=== PATIENT | male | born 1990 | race Caucasian/White ===

== ENCOUNTER 2019-09-06 13:14 | Inpatient (IN) | payer OTHER ==
--- NOTE | 2019-09-06 16:38 | HP ---
CIWA Score Nausea/Vomitin Muscle Tremors: 3 Anxiety: 3 Agitation: 2 Paroxysmal Sweats: 1-Minimal Palms Moist Orientation: 0-Oriented Tacttile Disturbances: 0-None Auditory Disturbances: 0-None Visual Disturbances: 0-None Headache: 2-Mild CIWA-Ar Total Score: 13 - Admission Criteria OASAS Guidelines: Admission for Medically Managed Detox: Requires at least one of the followin. CIWA greater than 12 2. Seizures within the past 24 hours 3. Delirium tremens within the past 24 hours 4. Hallucinations within the past 24 hours 5. Acute intervention needed for co occurring medical disorder 6. Acute intervention needed for co occurring psychiatric disorder 7. Severe withdrawal that cannot be handled at a lower level of care (continued vomiting, continued diarrhea, abnormal vital signs) requiring intravenous medication and/or fluids 8. Patient presents the following: CIWA greater than 12 Admission Criteria Met: Admission criteria met Admission [facility] Chief Complaint: alcohol detox and metamphetamine use Allergies/Adverse Reactions: Allergies Allergy/AdvReac Type Severity Reaction Status Date / Time No Known Allergies Allergy Verified 09/06/19 17:05 History of Present Illness: 29 yo with h/o metamphetamine use and alcohol use. Says he has bipolar d/o- on resperidal- does not take consistently. Does not have provider. Pt states last alcohol use was yesterday. Pt was taken to [facility] ER, evaluated for overdose and given Ativan and fluids and then sent here for detox. Says his parents called the ambulance because he was screaming and yelling at home. Lives in the [place]. Does not work. Gets high all day. alcohol- several beers a day crystal meth- 1/2 gram/day, injects into arm- started 6 months ago BECKI-0 Utox- pos for Met. ISTOP- negative for controlled substances. - Ebola screening Have you traveled outside of the country in the last 21 days: No Have you had contact with anyone from an Ebola affected area: No Have you been sick,other than usual withdrawal symptoms: No Do you have a fever: No - Review of Systems Constitutional: No Symptoms Reported EENT: reports: No Symptoms Reported Respiratory: reports: No Symptoms reported Cardiac: reports: No Symptoms Reported GI: reports: No Symptoms Reported : reports: No Symptoms Reported Musculoskeletal: reports: No Symptoms Reported Integumentary: reports: Other (states he born with a large rash on forearm) Neuro: reports: No Symptoms reported Endocrine: reports: No Symptoms Reported, Unexplained Weight Loss Psychiatric: reports: Agitated, Anxious, other (denies self harming thoughts) Other Systems: Reviewed and Negative Patient History - Patient Medical History Hx Bipolar Disorder: Yes - Patient Surgical History Past Surgical History: No - Smoking Cessation Smoking history: Never smoked Have you smoked in the past 12 months: No - Substance & Tx. History Hx Alcohol Use: Yes Hx Substance Use: Yes Hx Substance Use Treatment: No - Substances abused Crystal meth Substance route: Injection Frequency: Daily Amount used: 1/2 gram day Age of first use: 29 Date of last use: 09/05/19 Alcohol Other (specify): beer Substance route: Oral Frequency: Daily Amount used: several beers Date of last use: 09/05/19 Admission Physical Exam S - Physical General Appearance: Yes: Disheveled, Irritable, Anxious HEENTM: Yes: Within Normal Limits, Hearing grossly Normal, BENJAMIN, Pharynx Normal , Other (dry chapped lips) Respiratory: Yes: Within Normal Limits, Lungs Clear Neck: Yes: Within Normal Limits, No masses,lesions,Nodules Cardiology: Yes: Within Normal Limits, Regular Rhythm, Regular Rate Abdominal: Yes: Within Normal Limits, Normal Bowel Sounds, Non Tender Back: Yes: Within Normal Limits, Other (2 quarter sized open area on back- pt state oscar) Musculoskeletal: Yes: Within Normal Limits, Gait Steady Extremities: Yes: Within Normal Limits, Other (L upper extr: keratotic entending in a linear fashion, about 1-2 inches wide, from mid-forearm to shoulder) Neurological: Yes: Within Normal Limits, Fully Oriented, Alert, Motor Strength 5 /5, Normal Mood/Affect Integumentary: Yes: Track Jhaveri, Other (L upper extr: keratotic entending in a linear fashion, about 1-2 inches wide, from mid-forearm to shoulder and on upper shoulder) Lymphatic: Yes: Within Normal Limits - Diagnostic (1) Alcohol use disorder Current Visit: Yes Status: Acute (2) Methamphetamine use disorder, mild Current Visit: Yes Status: Acute (3) Bipolar 1 disorder Current Visit: Yes Status: Acute (4) Keratosis Current Visit: Yes Status: Acute Breathalyzer - Breathalyzer Breathalyzer: 0 Urine Drug Screen - Test Device Lot number: [id number] Expiration date: 06/13/21 - Control Is test valid?: Yes - Results Drug screen NEGATIVE: No Urine drug screen results: MET-Methamphetamine Inpatient Rehab Admission - Rehab Decision to Admit Inpatient rehab admission?: No
[2019-09-06] MEDS ORDERED: ONDANSETRON *ODT* 4 MG TABLET SL PRN (17:05)
[2019-09-06] MEDS ORDERED: BISMUTH SUBSALICYLATE 524 MG/30 ML UD PO PRN (17:05)
[2019-09-06] MEDS ORDERED: MAGNESIUM CITRATE 300 ML BOTTLE PO PRN (17:05)
[2019-09-06] MEDS ORDERED: MAGNESIUM HYDROX 2400MG/30ML ORAL SUSPENSION 30 ML CUP PO PRN (17:05)
[2019-09-06] MEDS ORDERED: hydrOXYzine PAMOATE 25 MG CAPSULE (FP) PO PRN (17:05)
[2019-09-06] MEDS ORDERED: METHOCARBAMOL 500 MG TABLET PO PRN (17:05)
[2019-09-06] MEDS ORDERED: MENTHOL/PHENOL 1 EACH UD MM PRN (17:05)
[2019-09-06] MEDS ORDERED: ACETAMINOPHEN 325 MG TABLET (FP) PO PRN ×2 (17:05)
[2019-09-06] MEDS ORDERED: MAG HYDROX/AL HYDROX/SIMETH 30 ML UNIT-DOSE CUP PO PRN (17:05)
[2019-09-06] MEDS ORDERED: LORazepam 1 MG TABLET PO PRN (17:05)
[2019-09-06] MEDS ORDERED: IBUPROFEN 400 MG TABLET (FP) PO PRN (17:05)
[2019-09-06 17:37] VITALS: BMI 30.1
[2019-09-06] MEDS ORDERED: LORazepam 2 MG TABLET PO ONE (18:30)
[2019-09-06] MEDS: THIAMINE HCL 100 MG TABLET (FP) PO SCH (22:04)
[2019-09-06] MEDS: MELATONIN 5 MG TABLETS PO PRN (22:04)
[2019-09-06] MEDS: LORazepam 2 MG TABLET PO SCH (22:04)
[2019-09-07] MEDS: LORazepam 2 MG TABLET PO SCH ×4 (06:31→22:12)
--- NOTE | 2019-09-07 08:20 | CONSULT ---
[facility] Psychiatric Consult - Data Date of interview: 09/07/19 Admission source: [facility] Identifying data: Mr Daniel is a 29 years old single male, unemployed with no source of income, living with his family seeking detox treatment for alcohol and methamphetamine Substance Abuse History: Reports history of alcohol and crystal meth use. Refer to addiction counselor's summary for further information Medical History: Unremarkable Psychiatric History: Reports that his first psychiatric contact occured a year ago when he was admitted to [facility], diagnosed with Bipolar Disorder and prescribed Risperdal 2mg/day. reports that he was discharged after 2 weeks stay, referred to outpatient for follow up. Told sports writer that he did not follow discharge instruction and has been off medication since. Denies previous suicidal attempt. At present, denies experiencing psychotic, manic or depressive symptoms, s/H ideations. However, reports sleeping poorly Physical/Sexual Abuse/Trauma History: Denies history of abuse as a child or DV relationship as an adult Mental Status Exam - Mental Status Exam Alert and Oriented to: Time, Place, Person Cognitive Function: Fair Patient Appearance: Disheveled Mood: Hopeful, Euthymic Speech Pattern: Clear Voice Loudness: Normal Thought Process: Intact, Goal Oriented Thought Disorder: Paranoid Ideation Suicidal Ideation: Denies Homicidal Ideation: Denies Insight/Judgement: Poor Sleep: Poorly Appetite: Good Muscle strength/Tone: Normal Gait/Station: Normal Psychiatric Findings - Problem List (Mathews 1, 2,3) (1) Mood disorder Current Visit: Yes Status: Chronic (2) Bipolar disorder Current Visit: Yes Status: Ruled-out (3) Substance induced mood disorder Current Visit: Yes Status: Ruled-out (4) Uncomplicated alcohol dependence Current Visit: Yes Status: Acute (5) Methamphetamine dependence Current Visit: Yes Status: Acute - Initial Treatment Plan Initial Treatment Plan: 1) Start Risperdal 1 mg po BID. 2) Continue inpatient detoxification
[2019-09-07 10:05] LABS: HEMATOCRIT 40.6 % (35.4-49); HEMOGLOBIN 13.7 GM/dL (11.7-16.9); MCH 29.2 pg (25.7-33.7); MCHC 33.8 g/dl (32.0-35.9); MEAN CELL VOLUME 86.4 fl (80-96); MEAN PLT VOLUME 8.3 fl (7.5-11.1); PLATELET COUNT 242 K/MM3 (134-434); WHITE BLOOD COUNT 6.3 K/mm3 (4.0-10.0)
--- NOTE | 2019-09-07 10:08 | EKG ---
Test Reason : Blood Pressure : / mmHG Vent. Rate : 076 BPM Atrial Rate : 076 BPM P-R Int : 138 ms QRS Dur : 088 ms QT Int : 372 ms P-R-T Axes : 034 054 029 degrees QTc Int : 418 ms SINUS RHYTHM WITH MARKED SINUS ARRHYTHMIA OTHERWISE NORMAL ECG NO PREVIOUS ECGS AVAILABLE Confirmed by Louie Chen ([id number]) on 09/07/2019 10:08:14 AM Referred By: Confirmed By:Louie Chen
[2019-09-07 10:19] LABS: ALBUMIN 3.2 g/dl (3.4-5.0); BILIRUBIN,TOTAL 0.2 mg/dL (0.2-1); BLOOD UREA NITROGEN 8.7 mg/dL (7-18); CALCIUM 7.9 mg/dL (8.5-10.1); CREATININE 0.8 mg/dL (0.55-1.3); TOT PROT 7.1 g/dl (6.4-8.2)
[2019-09-07] MEDS: risperiDONE 1 MG TABLET PO SCH ×2 (10:27→22:12)
[2019-09-07] MEDS: PRENATAL VITAMINS W/ FOLIC ACID TABLET (FP) PO SCH (10:27)
--- NOTE | 2019-09-07 11:07 | PN ---
S CIWA - CIWA Score Nausea/Vomitin-Mild Nausea/No Vomiting Muscle Tremors: 4-Moderate,w/Arms Extend Anxiety: 3 Agitation: 1-Slight > Activity Paroxysmal Sweats: 2 Orientation: 0-Oriented Tacttile Disturbances: 0-None Auditory Disturbances: 0-None Visual Disturbances: 1-Very Mild Sensitivity Headache: 0-None Present CIWA-Ar Total Score: 12 S Progress Note (SOAP) Subjective: 29 years old male admitted on 09/06/19 for alcohol withdrawal sx management treating with ativan detox regiment feeling ok today ate breakfast tolerated food and fluid well resting in bed limited conversation with staff Objective: 09/07/19 11:06 Vital Signs Temperature 98.7 F 09/07/19 09:02 Pulse Rate 95 H 09/07/19 09:02 Respiratory Rate 18 09/07/19 09:02 Blood Pressure 122/79 09/07/19 09:02 O2 Sat by Pulse Oximetry (%) Laboratory Last Values WBC 6.3 K/mm3 (4.0-10.0) 09/07/19 07:30 RBC 4.70 M/mm3 (4.00-5.60) 09/07/19 07:30 Hgb 13.7 GM/dL (11.7-16.9) 09/07/19 07:30 Hct 40.6 % (35.4-49) 09/07/19 07:30 MCV 86.4 fl (80-96) 09/07/19 07:30 MCH 29.2 pg (25.7-33.7) 09/07/19 07:30 MCHC 33.8 g/dl (32.0-35.9) 09/07/19 07:30 RDW 13.0 % (11.9-15.9) 09/07/19 07:30 Plt Count 242 K/MM3 (134-434) 09/07/19 07:30 MPV 8.3 fl (7.5-11.1) 09/07/19 07:30 Sodium 135 mmol/L (136-145) L 09/07/19 07:30 Potassium 4.0 mmol/L (3.5-5.1) 09/07/19 07:30 Chloride 106 mmol/L (98-107) 09/07/19 07:30 Carbon Dioxide 25 mmol/L (21-32) 09/07/19 07:30 Anion Gap 4 MMOL/L (8-16) L 09/07/19 07:30 BUN 8.7 mg/dL (7-18) 09/07/19 07:30 Creatinine 0.8 mg/dL (0.55-1.3) 09/07/19 07:30 Est GFR (CKD-EPI)AfAm 139.91 09/07/19 07:30 Est GFR (CKD-EPI)NonAf 120.72 09/07/19 07:30 Random Glucose 126 mg/dL (74-106) H 09/07/19 07:30 Calcium 7.9 mg/dL (8.5-10.1) L 09/07/19 07:30 Total Bilirubin 0.2 mg/dL (0.2-1) 09/07/19 07:30 AST 23 U/L (15-37) 09/07/19 07:30 ALT 34 U/L (13-61) 09/07/19 07:30 Alkaline Phosphatase 91 U/L (45-117) 09/07/19 07:30 Total Protein 7.1 g/dl (6.4-8.2) 09/07/19 07:30 Albumin 3.2 g/dl (3.4-5.0) L 09/07/19 07:30 lab noted low Ca++ supplement oscal Assessment: 09/07/19 11:07 alcohol withdrawal Plan: ativan regiment
[2019-09-07] MEDS: CALCIUM 250MG/VIT-D 125 UNITS 1 COMBO TABLET PO SCH ×2 (12:09→22:12)
[2019-09-07] MEDS: THIAMINE HCL 100 MG TABLET (FP) PO SCH (22:15)
[2019-09-08] MEDS: LORazepam 1 MG TABLET PO SCH ×4 (06:17→22:00)
[2019-09-08] MEDS: CALCIUM 250MG/VIT-D 125 UNITS 1 COMBO TABLET PO SCH ×2 (10:44→22:00)
[2019-09-08] MEDS: PRENATAL VITAMINS W/ FOLIC ACID TABLET (FP) PO SCH (10:44)
[2019-09-08] MEDS: risperiDONE 1 MG TABLET PO SCH ×2 (10:44→22:00)
--- NOTE | 2019-09-08 10:57 | PN ---
S CIWA - CIWA Score Nausea/Vomitin-No Nausea/No Vomiting Muscle Tremors: 3 Anxiety: 2 Agitation: 0-Normal Activity Paroxysmal Sweats: 1-Minimal Palms Moist Orientation: 0-Oriented Tacttile Disturbances: 0-None Auditory Disturbances: 0-None Visual Disturbances: 1-Very Mild Sensitivity Headache: 1-Very Mild CIWA-Ar Total Score: 8 S Progress Note (SOAP) Subjective: 29 years old male admitted on 09/06/19 for alcohol withdrawal sx management treating with ativan detox regiment feeling tired refuses vital signs compliance with ativan regiment encourage to attend behavior and psychosocial therapies groups and meetings while in detox patient prefers to go to [facility] as next level for chemical dependent recovery Objective: 09/08/19 11:05 Vital Signs Temperature 97 F L 09/08/19 10:44 Pulse Rate 107 H 09/08/19 10:44 Respiratory Rate 20 09/08/19 10:44 Blood Pressure 114/62 09/08/19 10:44 O2 Sat by Pulse Oximetry (%) Laboratory Last Values WBC 6.3 K/mm3 (4.0-10.0) 09/07/19 07:30 RBC 4.70 M/mm3 (4.00-5.60) 09/07/19 07:30 Hgb 13.7 GM/dL (11.7-16.9) 09/07/19 07:30 Hct 40.6 % (35.4-49) 09/07/19 07:30 MCV 86.4 fl (80-96) 09/07/19 07:30 MCH 29.2 pg (25.7-33.7) 09/07/19 07:30 MCHC 33.8 g/dl (32.0-35.9) 09/07/19 07:30 RDW 13.0 % (11.9-15.9) 09/07/19 07:30 Plt Count 242 K/MM3 (134-434) 09/07/19 07:30 MPV 8.3 fl (7.5-11.1) 09/07/19 07:30 Sodium 135 mmol/L (136-145) L 09/07/19 07:30 Potassium 4.0 mmol/L (3.5-5.1) 09/07/19 07:30 Chloride 106 mmol/L (98-107) 09/07/19 07:30 Carbon Dioxide 25 mmol/L (21-32) 09/07/19 07:30 Anion Gap 4 MMOL/L (8-16) L 09/07/19 07:30 BUN 8.7 mg/dL (7-18) 09/07/19 07:30 Creatinine 0.8 mg/dL (0.55-1.3) 09/07/19 07:30 Est GFR (CKD-EPI)AfAm 139.91 09/07/19 07:30 Est GFR (CKD-EPI)NonAf 120.72 09/07/19 07:30 Random Glucose 126 mg/dL (74-106) H 09/07/19 07:30 Calcium 7.9 mg/dL (8.5-10.1) L 09/07/19 07:30 Total Bilirubin 0.2 mg/dL (0.2-1) 09/07/19 07:30 AST 23 U/L (15-37) 09/07/19 07:30 ALT 34 U/L (13-61) 09/07/19 07:30 Alkaline Phosphatase 91 U/L (45-117) 09/07/19 07:30 Total Protein 7.1 g/dl (6.4-8.2) 09/07/19 07:30 Albumin 3.2 g/dl (3.4-5.0) L 09/07/19 07:30 RPR Titer Nonreactive (NONREACTIVE) 09/07/19 07:30 lab noted Assessment: 09/08/19 11:06 alcohol withdrawal Plan: ativan regiment
[2019-09-08] MEDS: SODIUM CHLORIDE NASAL SPRAY 44 ML BOTTLE NS SCH ×2 (13:44→22:01)
[2019-09-08] MEDS: THIAMINE HCL 100 MG TABLET (FP) PO SCH (22:00)
[2019-09-08] MEDS: MELATONIN 5 MG TABLETS PO PRN (22:01)
[2019-09-09] MEDS ORDERED: LORazepam 0.5 MG TABLET PO PRN
[2019-09-09] MEDS: LORazepam 0.5 MG TABLET PO SCH ×4 (06:24→22:06)
[2019-09-09] MEDS: SODIUM CHLORIDE NASAL SPRAY 44 ML BOTTLE NS SCH ×3 (07:02→22:08)
[2019-09-09] MEDS: PRENATAL VITAMINS W/ FOLIC ACID TABLET (FP) PO SCH (10:34)
[2019-09-09] MEDS: CALCIUM 250MG/VIT-D 125 UNITS 1 COMBO TABLET PO SCH ×2 (10:34→22:06)
[2019-09-09] MEDS: risperiDONE 1 MG TABLET PO SCH ×2 (10:35→22:06)
--- NOTE | 2019-09-09 15:12 | PN ---
[facility] CIWA - CIWA Score Nausea/Vomitin-No Nausea/No Vomiting Muscle Tremors: 1-None Visible, but [place] Anxiety: 1-Mildly Anxious Agitation: 0-Normal Activity Paroxysmal Sweats: 1-Minimal Palms Moist Orientation: 0-Oriented Tacttile Disturbances: 1-Very Mild Itch/Numbness Auditory Disturbances: 0-None Visual Disturbances: 1-Very Mild Sensitivity Headache: 0-None Present CIWA-Ar Total Score: 5 [facility] Progress Note (SOAP) Subjective: 29 years old male admitted on 09/06/19 for alcohol withdrawal sx management treating with ativan detox regiment feeling better today less tremor mild anxiety Objective: 09/09/19 15:11 Vital Signs Temperature 97.4 F L 09/09/19 12:52 Pulse Rate 107 H 09/09/19 12:52 Respiratory Rate 18 09/09/19 12:52 Blood Pressure 139/85 09/09/19 12:52 O2 Sat by Pulse Oximetry (%) Laboratory Last Values WBC 6.3 K/mm3 (4.0-10.0) 09/07/19 07:30 RBC 4.70 M/mm3 (4.00-5.60) 09/07/19 07:30 Hgb 13.7 GM/dL (11.7-16.9) 09/07/19 07:30 Hct 40.6 % (35.4-49) 09/07/19 07:30 MCV 86.4 fl (80-96) 09/07/19 07:30 MCH 29.2 pg (25.7-33.7) 09/07/19 07:30 MCHC 33.8 g/dl (32.0-35.9) 09/07/19 07:30 RDW 13.0 % (11.9-15.9) 09/07/19 07:30 Plt Count 242 K/MM3 (134-434) 09/07/19 07:30 MPV 8.3 fl (7.5-11.1) 09/07/19 07:30 Sodium 135 mmol/L (136-145) L 09/07/19 07:30 Potassium 4.0 mmol/L (3.5-5.1) 09/07/19 07:30 Chloride 106 mmol/L (98-107) 09/07/19 07:30 Carbon Dioxide 25 mmol/L (21-32) 09/07/19 07:30 Anion Gap 4 MMOL/L (8-16) L 09/07/19 07:30 BUN 8.7 mg/dL (7-18) 09/07/19 07:30 Creatinine 0.8 mg/dL (0.55-1.3) 09/07/19 07:30 Est GFR (CKD-EPI)AfAm 139.91 09/07/19 07:30 Est GFR (CKD-EPI)NonAf 120.72 09/07/19 07:30 Random Glucose 126 mg/dL (74-106) H 09/07/19 07:30 Calcium 7.9 mg/dL (8.5-10.1) L 09/07/19 07:30 Total Bilirubin 0.2 mg/dL (0.2-1) 09/07/19 07:30 AST 23 U/L (15-37) 09/07/19 07:30 ALT 34 U/L (13-61) 09/07/19 07:30 Alkaline Phosphatase 91 U/L (45-117) 09/07/19 07:30 Total Protein 7.1 g/dl (6.4-8.2) 09/07/19 07:30 Albumin 3.2 g/dl (3.4-5.0) L 09/07/19 07:30 RPR Titer Nonreactive (NONREACTIVE) 09/07/19 07:30 lab noted 09/09/19 15:11 continue calcium supplement Assessment: 09/09/19 15:12 alcohol withdrawal Plan: ativan regiment
[2019-09-09] MEDS: THIAMINE HCL 100 MG TABLET (FP) PO SCH (22:06)
[2019-09-09] MEDS: MELATONIN 5 MG TABLETS PO PRN (22:07)
[2019-09-10] MEDS ORDERED: LORazepam 0.5 MG TABLET PO ONE (05:00)
[2019-09-10] MEDS: SODIUM CHLORIDE NASAL SPRAY 44 ML BOTTLE NS SCH (07:28)
[2019-09-10 09:56] VITALS: BP 131/79; PULSE 108; TEMP 97.7
[2019-09-10] MEDS: CALCIUM 250MG/VIT-D 125 UNITS 1 COMBO TABLET PO SCH (11:43)
[2019-09-10] MEDS: risperiDONE 1 MG TABLET PO SCH (11:44)
[2019-09-10] MEDS: PRENATAL VITAMINS W/ FOLIC ACID TABLET (FP) PO SCH (11:44)
--- NOTE | 2019-09-10 14:11 | DS ---
[facility] Detox Discharge Summary Admission Date: 09/06/19 Discharge Date: 09/10/19 - History Present History: Alcohol Dependence Additional Comments: 29 years old male admitted on 09/06/19 for alcohol withdrawal sx management treated with ativan detox regiment Mr Daniel has completed ativan regiment and tolerated well seen by psychiatrist resume risparidal alert oriented x 3 respiratory clear lungs bilaterally on auscultation abdomen soft round obese no rebound tenderness skin warm and dry Pertinent Past History: time for discharge 32 minutes - Physical Exam Results Vital Signs: Vital Signs Temperature 97.7 F 09/10/19 09:13 Pulse Rate 108 H 09/10/19 09:13 Respiratory Rate 18 09/10/19 09:13 Blood Pressure 131/79 09/10/19 09:13 O2 Sat by Pulse Oximetry (%) Pertinent Admission Physical Exam Findings: alcohol withdrawal Laboratory Last Values WBC 6.3 K/mm3 (4.0-10.0) 09/07/19 07:30 RBC 4.70 M/mm3 (4.00-5.60) 09/07/19 07:30 Hgb 13.7 GM/dL (11.7-16.9) 09/07/19 07:30 Hct 40.6 % (35.4-49) 09/07/19 07:30 MCV 86.4 fl (80-96) 09/07/19 07:30 MCH 29.2 pg (25.7-33.7) 09/07/19 07:30 MCHC 33.8 g/dl (32.0-35.9) 09/07/19 07:30 RDW 13.0 % (11.9-15.9) 09/07/19 07:30 Plt Count 242 K/MM3 (134-434) 09/07/19 07:30 MPV 8.3 fl (7.5-11.1) 09/07/19 07:30 Sodium 135 mmol/L (136-145) L 09/07/19 07:30 Potassium 4.0 mmol/L (3.5-5.1) 09/07/19 07:30 Chloride 106 mmol/L (98-107) 09/07/19 07:30 Carbon Dioxide 25 mmol/L (21-32) 09/07/19 07:30 Anion Gap 4 MMOL/L (8-16) L 09/07/19 07:30 BUN 8.7 mg/dL (7-18) 09/07/19 07:30 Creatinine 0.8 mg/dL (0.55-1.3) 09/07/19 07:30 Est GFR (CKD-EPI)AfAm 139.91 09/07/19 07:30 Est GFR (CKD-EPI)NonAf 120.72 09/07/19 07:30 Random Glucose 126 mg/dL (74-106) H 09/07/19 07:30 Calcium 7.9 mg/dL (8.5-10.1) L 09/07/19 07:30 Total Bilirubin 0.2 mg/dL (0.2-1) 09/07/19 07:30 AST 23 U/L (15-37) 09/07/19 07:30 ALT 34 U/L (13-61) 09/07/19 07:30 Alkaline Phosphatase 91 U/L (45-117) 09/07/19 07:30 Total Protein 7.1 g/dl (6.4-8.2) 09/07/19 07:30 Albumin 3.2 g/dl (3.4-5.0) L 09/07/19 07:30 RPR Titer Nonreactive (NONREACTIVE) 09/07/19 07:30 lab noted - Treatment Hospital Course: Detox Protocol Followed, Detoxed Safely, Responded well, Discharged Condition Good, Rehab Referral Accepted Patient has Accepted a Rehab Referral to: [facility] - Diagnosis (1) Alcohol use disorder Status: Acute (2) Substance induced mood disorder Status: Suspected - AMA Did Patient Leave Against Medical Advice: No CIWA Score - CIWA Score Nausea/Vomitin-No Nausea/No Vomiting Muscle Tremors: 1-None Visible, but [place] Anxiety: 0-No Anxiety, at Ease Agitation: 0-Normal Activity Paroxysmal Sweats: No Perspiration Orientation: 0-Oriented Tacttile Disturbances: 0-None Auditory Disturbances: 0-None Visual Disturbances: 1-Very Mild Sensitivity Headache: 0-None Present CIWA-Ar Total Score: 2
== END 2019-09-10 09:53 | disposition home or self-care (01) | DRG 775 ==
LOC: YASAS 13:14 → Y3N 18:15
PROVIDERS: ADMIT Allergy & Immunology; ATTEND Allergy & Immunology
PROC: HZ2ZZZZ Detoxification Services for Substance Abuse Treatment (ICD-10-PCS; principal; 2019-09-06)
DX: F10.230 Alcohol dependence with withdrawal, uncomplicated (principal); F15.20 Other stimulant dependence, uncomplicated; F19.24 Other psychoactive substance dependence with psychoactive substance-induced mood disorder; F39 Unspecified mood [affective] disorder; F32.9 Major depressive disorder, single episode, unspecified; E83.51 Hypocalcemia; L57.0 Actinic keratosis
CPT/HCPCS: 36415; 80053; 85027; 86593; 93005; 93010; J2794